=== PATIENT | male | born 2000 | race Caucasian/White ===

== ENCOUNTER 2023-12-10 12:01 | Day surgery (SDC) | payer SELFPAY ==
[~2023-12-10] VITALS: Ht 170.2 cm; Wt 73.6 kg
[~2023-12-10 12:01] MED LIST: NORCO 325 MG-51 TAB PO
[2023-12-10 13:04] VITALS: BP 133/89; PULSE 103; TEMP 98.1
--- NOTE | 2023-12-10 13:06 | NUR ---
1225 Patient to [address] via wheelchair. Patient has a splint that goes to above the left knee in place. Patient is alert and oriented, accompanied by his step-father. Patient's step father is Frisian speaking. Consents reviewed and signed by patient. IV established. Call light in reach. Warm blanket provided.
[2023-12-10] MEDS ORDERED: LR 1,000 ML IV SCH (13:30)
[2023-12-10] MEDS ORDERED: Ondansetron 4 MG/2 ML VIAL ONE (13:37)
[2023-12-10] MEDS ORDERED: dexAMETHasone 10 MG/ML VIAL ONE (13:37)
[2023-12-10] MEDS ORDERED: Midazolam 2 MG/2 ML VIAL ONE (13:38)
[2023-12-10] MEDS ORDERED: fentaNYL 50 MCG/ML 2 ML VIAL ONE (13:39)
[2023-12-10] MEDS ORDERED: HYDROmorphone 2 MG/1 ML VIAL IV PRN (14:00)
[2023-12-10] MEDS ORDERED: Ondansetron 4 MG/2 ML VIAL IV PRN ×2 (14:00→15:15)
[2023-12-10] MEDS ORDERED: Meperidine 50 MG/ML 1 ML VIAL IV PRN (14:00)
[2023-12-10] MEDS ORDERED: Ketorolac 30 MG/ML VIAL IV PRN (14:00)
[2023-12-10] MEDS ORDERED: fentaNYL 50 MCG/ML 2 ML VIAL IV PRN (14:00)
[2023-12-10] MEDS ORDERED: hydrALAZINE 20 MG/ML 1 ML VIAL IV PRN (14:00)
[2023-12-10] MEDS ORDERED: HYDROcodone/Acetaminophen 7.5-325 MG TAB PO PRN (15:15)
[2023-12-10] MEDS ORDERED: traMADol 50 MG TAB PO PRN (15:15)
[2023-12-10] MEDS ORDERED: Morphine 4 MG/ML VIAL IV PRN (15:15)
[2023-12-10] MEDS ORDERED: ULTRAM 50MG TAB50 MG PO (15:20)
[2023-12-10] MEDS ORDERED: NORCO 325 MG-7.1 TAB PO (15:20)
[2023-12-10 17:05] VITALS: BP 137/87; PULSE 98; TEMP 98.8
[2023-12-10 17:20] VITALS: BP 124/79; PULSE 99
[2023-12-10 17:26] VITALS: TEMP 98.8
[2023-12-10 17:35] VITALS: BP 136/84; PULSE 100
--- NOTE | 2023-12-10 18:19 | NUR ---
PT RECEIVED A PREOPERATIVE BLOCK TO LLE. PT DENIED SENSATION IN TOES OF OPERATIVE EXTREMITY POST SURGERY. TOES ARE WARM TO TOUCH, COLOR IS NORMAL, CAP REFILL < 3 SEC. PATIENT INSTRUCTED TO ON MONITORING CIRCULATION IN LLE.
--- NOTE | 2023-12-10 18:29 | NUR ---
1656 RECEIVED POST-OP REPORT FROM JACOBO MCKINNEY. 1705 PATIENT RETURNED TO BAY [facility], ALERT AND ANSWERING QUESIONS APPROPRIATELY, BREATHING EVEN AND UNLABORED. REOPRTING PAIN LEVEL OF 4/10. CLEAN DRY DRESSING ON LLE. LEG ELEVATED ON A PILLOW. CAP REFILL < 3 SEC. IN TOES OF OPERATIVE ANKLE. COLOR NORMAL, SKIN WARM TO TOUCH. DECREASED SENSATION R/T PREOPERATIVE NERVE BLOCK. 1715 PT GIVEN MUFFINS AND ORANGE JUICE FOR PO CHALLENGE. TOLERATED WELL. 1740 PHYSICIAN DISCHARGE INSTRUCTIONS AND PATIENT EDUCATIONAL MATERIALS REVIEWED WITH PATIENT. QUESTIONS INVITED AND ANSWERED. 1754 PATIENT TO LOBBY VIA WHEELCHAIR FOR A RIDE HOME WITH HIS FAMILY VIA POV.
== END 2023-12-10 17:54 | disposition home or self-care (01) ==
LOC: SDCO 12:01
DX: S82.842A Displaced bimalleolar fracture of left lower leg, initial encounter for closed fracture (principal); S93.432A Sprain of tibiofibular ligament of left ankle, initial encounter; G89.18 Other acute postprocedural pain; W17.89XA Other fall from one level to another, initial encounter
CPT/HCPCS: C1713; J0690; J1100; J1885; J2250; J2405; J2704; J2795; J3010; J7120

== ENCOUNTER 2024-03-23 21:58 | Emergency (ER) | payer SELFPAY ==
[~2024-03-23] VITALS: Ht 170.2 cm; Wt 81.8 kg
[~2024-03-23 21:58] MED LIST changes: +NORCO 325 MG-7.1 TAB PO; +PROTONIX 40MG T40 MG PO; +ULTRAM 50MG TAB50 MG PO
[2024-03-23] MEDS ORDERED: NS 1,000 ML IV ONE (22:00)
[2024-03-23 23:36] VITALS: BP 122/58; PULSE 103; TEMP 98.6
== END 2024-03-23 23:36 ==
LOC: COL.ER 21:58
DX: S60.811A Abrasion of right wrist, initial encounter (principal); R07.9 Chest pain, unspecified; X58.XXXA Exposure to other specified factors, initial encounter
CPT/HCPCS: J7030